=== PATIENT | male | born 1970 | race Two or more races ===

== ENCOUNTER 2016-11-01 07:09 | Emergency (ER) | payer SELFPAY ==
[~2016-11-01] VITALS: Ht 177.8 cm; Wt 66.2 kg
[2016-11-01 07:43] LABS: KETONES,URINE NEGATIVE (NEGATIVE); LEUKOCYTE ESTERASE ,URINE NEGATIVE (NEGATIVE); PH,URINE 5.5 (5.0-8.0)
[2016-11-01 07:45] LABS: ADD UA MICROSCOPIC YES
[2016-11-01 07:51] LABS: ADD URINE CULTURE NO; MUCUS,URINE Moderate /LPF (None Seen); RBC,URINE 51-80 /HPF (0-2)
[2016-11-01 08:14] VITALS: BP 118/87
== END 2016-11-01 08:14 | disposition home or self-care (01) ==
LOC: ER 07:13
DX: N20.0 Calculus of kidney (principal); Z87.442 Personal history of urinary calculi
CPT/HCPCS: 81001; 99283; A4606; Z7610; 81000-TC